=== PATIENT | female | born 1985 | race Caucasian/White ===

== ENCOUNTER 2019-01-02 09:13 | Outpatient (CLI) | payer OTHER | END 2019-01-02 10:30 | disposition home or self-care (01) | LOC: PRENATAL 09:13 | DX: O35.3XX0 Maternal care for (suspected) damage to fetus from viral disease in mother, not applicable or unspecified (principal); Z36.89 Encounter for other specified antenatal screening ==

== ENCOUNTER 2019-04-02 10:06 | Outpatient (CLI) | payer OTHER ==
[2019-04-03] MEDS ORDERED: PRENATAL + DHA1 EAC1 PO (10:17)
== END 2019-04-02 10:22 | disposition home or self-care (01) ==
LOC: NST 10:06
DX: Z34.83 Encounter for supervision of other normal pregnancy, third trimester (principal)

== ENCOUNTER 2019-04-03 09:26 | Inpatient (IN) | payer OTHER ==
[~2019-04-03] VITALS: Ht 177.8 cm; Wt 69.9 kg
[2019-04-03] MEDS ORDERED: PRENATAL + DHA1 EAC1 PO (10:17)
== END 2019-04-05 14:48 | disposition home or self-care (01) | DRG 807 ==
LOC: LDR 09:26 → OB/GYN 09:26 → LDR 10:39 → OB/GYN 19:39
PROVIDERS: ADMIT Obstetrics & Gynecology
PROC: 10D07Z6 Extraction of Products of Conception, Vacuum, Via Natural or Artificial Opening (ICD-10-PCS; principal; 2019-04-03)
PROC: 3E033VJ Introduction of Other Hormone into Peripheral Vein, Percutaneous Approach (ICD-10-PCS; 2019-04-03)
PROC: 4A1HXCZ Monitoring of Products of Conception, Cardiac Rate, External Approach (ICD-10-PCS; 2019-04-03)
DX: O62.1 Secondary uterine inertia (principal); Z37.0 Single live birth; O66.5 Attempted application of vacuum extractor and forceps; Z3A.35 35 weeks gestation of pregnancy